=== PATIENT | male | born 1990 | race Two or more races ===

== ENCOUNTER 2016-06-03 15:38 | Emergency (ER) | payer MEDICAID ==
[~2016-06-03] VITALS: Ht 172.7 cm; Wt 72.6 kg
[~2016-06-03 15:38] MED LIST: OMEP20CA5 PO
[2016-06-03 16:50] VITALS: BP 119/74
[2016-06-03] MEDS ORDERED: KETOROLAC TROMETH 60MG/2ML VIAL IM ONE (17:15)
== END 2016-06-03 18:12 | disposition home or self-care (01) ==
LOC: ER 15:55
DX: M54.5 Low back pain (principal); V49.9XXA Car occupant (driver) (passenger) injured in unspecified traffic accident, initial encounter; Y93.89 Activity, other specified; Y99.8 Other external cause status; Y92.89 Other specified places as the place of occurrence of the external cause; Z53.21 Procedure and treatment not carried out due to patient leaving prior to being seen by health care provider
CPT/HCPCS: J1885